=== PATIENT | male | born 2000 | race Caucasian/White ===

== ENCOUNTER 2022-03-28 16:37 | Emergency (ER) | payer BC, SELFPAY ==
[2022-03-28 16:48] VITALS: BP 113/81; PULSE 80; TEMP 36.8; O2SAT 98; BMI 24.4
--- NOTE | 2022-03-28 17:41 | ED_ITS ---
HPI - Abdominal Pain General Chief Complaint: Abdominal Pain Stated Complaint: Abdominal Pain,Pos Appendicitis or Intestinal Time Seen by Provider: 03/28/22 16:39 History of Present Illness HPI narrative: This 21-year-old male comes in with abdominal pain that began 2 days ago. He states that it started out in his upper epigastric region and then seemed to migrate down into the right lower quadrant and now is back in the upper epigastric region primarily. He states that the pain was more severe through the night last night but now has pain at 3/10 in severity. On a he states that movement does not particular make it worse and he has had normal appetite throughout this time and states that food does not bother his symptoms or make it feel better. He has not had any fevers, nausea, vomiting, or diarrhea. Prior to this he has been in good health. He went to clinic and had blood drawn which returned with normal findings except for his white count was almost 14,000. He arrives here with normal vital signs. He was sent here from clinic for further evaluation and to rule out appendicitis. Related Data Previous Rx's Medication Instructions Recorded glycopyrrolate 1 mg tablet 1 mg PO DAILY PRN secretions #30 03/23/22 tabs ketorolac 10 mg tablet 10 mg PO Q8H 5 days #15 tabs 03/28/22 pantoprazole 20 mg tablet,delayed 20 mg PO DAILY #15 tabs 03/28/22 release (Protonix) Allergies Allergy/AdvReac Type Severity Reaction Status Date / Time succinylcholine Allergy Severe Verified 03/28/22 15:27 Review of Systems Status of ROS Reports: 10 or more systems reviewed and unremarkable except as noted in History and below Narrative Constitutional: No fevers, no weight gain or loss. Eyes: No discharge. No vision changes. HENT: No congestion, no sore throat, no ear pain. Cardiovascular: No chest pain, no palpitations. Respiratory: No shortness of breath, no wheezes, no cough. Gastrointestinal: No vomiting, no diarrhea. Abdominal pain as described above. Genitourinary: No dysuria, no hematuria. Musculoskeletal: Normal range of motion. Skin: No rashes, no pruritis. Neurological: No dizziness, weakness, sensory change, speech change. Endo/Heme/Allergies: No bruising or bleeding. No polydipsia. Pysch: no suicidality, no anxiety, no insomnia. All other systems reviewed and are negative. [facility] Surgical History (Updated 03/16/22 @ 12:16 by Ro Mcnamara) Status post routine circumcision (2017) Social History (Updated 03/16/22 @ 12:18 by Ro Mcnamara) Narrative: [employer] Non smoker No EtOH Smoking Status: Former smoker How often do you have a drink containing alcohol: 2-3 times a week How many standard drinks containing alcohol do you have on a typical day: 7 to 9 How often do you have six or more drinks on one occasion: Weekly AUDIT-C Alcohol total score: 9 Non-prescribed substance use: denies use Exam Narrative: Exam Narrative: Constitutional: Well-developed, well-nourished, no acute distress. HEENT: Normocephalic, atraumatic. Neck: Normal range of motion. Nontender. Supple. Heart: Regular. No murmurs. Normal rate. Intact distal pulses. Lungs: Clear to auscultation. No chest discomfort. No wheezes, rhonchi, or rales. Abdomen: Normal bowel sounds. Mild tenderness in the upper epigastric region. Rovsing sign is negative. No particular tenderness when palpating deeply over McBurney's point. No tenderness when palpating over the gallbladder.. No rebound tenderness. Genitalia: Deferred. Back: No midline tenderness. Normal range of motion. Extremities: Normal range of motion. No injury. Skin: Intact. No rash. Warm. No erythema or pallor. Neurologic: No altered sensation. No weakness. Alert and oriented. Psychiatric: No suicidality. No anxiety or depression. No insomnia. Nursing notes and vitals signs are reviewed. Const: Vital Signs, click to edit/add: Vital Signs - 24 hr 03/28/22 16:48 Temperature 98.3 F Pulse Rate [Pulse Oximeter] 80 Blood Pressure [Ri ght Upper Arm] 113/81 Pulse Oximetry 98 Oxygen Delivery Me thod Room Air Course Vital Signs Vital signs: Initial Vital Signs Temperature 98.3 F 03/28/22 16:48 Temperature Source Temporal Artery Scan 03/28/22 16:48 Pulse Rate 80 03/28/22 16:48 Blood Pressure 113/81 03/28/22 16:48 Blood Pressure Mean 91 03/28/22 16:48 Blood Pressure Position Sitting 03/28/22 16:48 Pulse Oximetry 98 03/28/22 16:48 Oxygen Delivery Method 03/28/22 16:48 Vital Signs Temperature 98.3 F 03/28/22 16:48 Pulse Rate 80 03/28/22 16:48 Blood Pressure 113/81 03/28/22 16:48 Pulse Oximetry 98 03/28/22 16:48 Oxygen Delivery Method 03/28/22 16:48 Temperature 98.3 F 03/28/22 16:48 Pulse Rate 80 03/28/22 16:48 Blood Pressure 113/81 03/28/22 16:48 Pulse Oximetry 98 03/28/22 16:48 Oxygen Delivery Method 03/28/22 16:48 MDM - Abdominal Pain MDM Narrative Medical decision making narrative: This patient comes in for evaluation of abdominal pain. His exam is not very suspicious for an acute abdomen including appendicitis. His symptoms have improved since last night. I did discuss lab and imaging options with the patient and stated that these are optional given his signs and symptoms. In a process of shared decision-making he declined any further studies at this point. I did use bedside ultrasound unofficially to examine organs in the upper abdomen. These all appeared normal. The patient did receive a GI cocktail and this brought minimal relief. He is okay to return home and states that his pain is minimal. He received prescriptions for Protonix and Toradol. I did describe signs and symptoms that would indicate a need for return and re-evaluation. Discharge Plan Discharge Clinical Impression: Abdominal pain Patient Disposition: Home, Self-Care Condition: Stable Additional Instructions: Take medication as needed and indicated. Follow up with MD or return if worsening. Prescriptions: New ketorolac 10 mg tablet 10 mg PO Q8H 5 Days Qty: 15 0RF pantoprazole [Protonix] 20 mg tablet,delayed release (DR/EC) 20 mg PO DAILY Qty: 15 2RF No Action glycopyrrolate 1 mg tablet 1 mg PO DAILY PRN (Reason: secretions) Qty: 30 1RF Follow Up/Referrals: Aamir Medina MD [Primary Care Provider] - Stand Alone Forms: [employer] Info Instructions
== END 2022-03-28 18:07 | disposition home or self-care (01) ==
PROVIDERS: Emergency Provider Emergency Medicine Emergency Medical Services; PCP Family Medicine
DX: R10.9 Unspecified abdominal pain (principal)
CPT/HCPCS: 99283; 99284

== ENCOUNTER 2022-11-06 20:00 | Outpatient (CLI) | payer BC, SELFPAY ==
--- NOTE | 2022-11-29 08:40 | W.PM.SLEEP ---
Sleep Study Details Details Interpreting Provider: Juan Miguel Date of Sleep Study: 11/06/22 Sleep Study Details: STUDY TYPE:? Home unattended ? BMI:? 25.2 ORDERING PROVIDER:Mae Bullard INDICATION:? Concerns about sleep apnea ? SLEEP SUMMARY:? 615.8 minutes monitored RESPIRATORY SUMMARY:? AHI is 10.7, supine 12.4, left lateral 8.6 Low oxygen 82 16.7% of study oxygen less than 90% Snoring 0.7% PERIODIC LIMB MOVEMENTS OF SLEEP:? Not recorded during home study CARDIAC:? Range 40-95, mean 50.6 IMPRESSION:? Mild obstructive sleep apnea present in all positions but somewhat worse in the supine position. Hypo oxygenation during study with 16% of the study oxygen less than 90% RECOMMENDATION: Treatment options include CPAP AutoSet 4-17, dental appliance and/or airway expansion surgery. Once effective therapy has been established overnight oximetry should be performed to rule out necessity for any cardiopulmonary evaluation.
== END 2022-11-06 20:01 | disposition home or self-care (01) ==
LOC: SLEEP 11-23 13:43
PROVIDERS: PCP Family Medicine; Visit Provider Otolaryngology
DX: G47.33 Obstructive sleep apnea (adult) (pediatric) (principal)
CPT/HCPCS: 95806